=== PATIENT | male | born 1945 | race Caucasian/White ===

== ENCOUNTER 2018-01-17 14:39 | Inpatient (IN) | payer MEDICARE, OTHER ==
[2018-01-17] MEDS: NITROGLYCERIN 2% 1 GM OINT PKT TD (15:10)
[2018-01-17] MEDS: NITROGLYCERIN (SL) 0.4 MG TAB SL (15:10)
[2018-01-17] MEDS: ASPIRIN 81 MG TAB PO (15:10)
[2018-01-17 15:12] LABS: ADD MAN DIFF? NO
[2018-01-17 15:14] LABS: WHITE BLOOD COUNT 19.5 10^3/ul (4.8-10.8)
[2018-01-17 15:14] LABS: BASOPHILS % 0.2 % (0.0-2.0); EOSINOPHILS # 0.3 10^3/ul (0.0-0.5); EOSINOPHILS % 1.5 % (0.0-7.0); HEMATOCRIT 47.1 % (42.0-52.0); HEMOGLOBIN 15.9 g/dl (14.0-18.0); LYMPHOCYTES # 0.8 10^3/ul (0.8-2.9); LYMPHOCYTES % 4.3 % (15.0-51.0); MEAN CORPUSCULAR HEMOGLOBIN 32.3 pg (29.0-33.0); MEAN CORPUSCULAR HGB CONC 33.8 g/dl (32.0-37.0); MEAN CORPUSCULAR VOLUME 95.7 fl (82.0-101.0); MEAN PLATELET VOLUME 9.6 fl (7.4-10.4); MONOCYTE # 1.3 10^3/ul (0.3-0.9); MONOCYTES % 6.8 % (0.0-11.0); NEUTROPHIL # 16.9 10^3/ul (1.6-7.5); NEUTROPHILS % 86.5 % (39.0-77.0); PLATELET COUNT 309 10^3/UL (140-415); RED BLOOD COUNT 4.92 10^6/ul (4.70-6.10); RED CELL DISTRIBUTION WIDTH 12.9 % (11.5-14.5)
[2018-01-17 15:22] LABS: ANION GAP 17 (8-16); BLOOD UREA NITROGEN 18 mg/dl (7-20); CALCIUM 9.7 mg/dl (8.4-10.2); CARBON DIOXIDE 23 mmol/L (21-31); CHLORIDE 104 mmol/L (97-110); CREATININE 0.77 mg/dl (0.61-1.24); GLUCOSE 232 mg/dl (70-220); POTASSIUM 4.4 mmol/L (3.5-5.1); SODIUM 140 mmol/L (135-144)
[2018-01-17 15:34] LABS: TROPONIN-I 0.094 ng/ml (0.000-0.120)
[2018-01-17] MEDS ORDERED: ONDANSETRON 4 MG INJ IV ×2 (17:30→18:00)
[2018-01-17] MEDS ORDERED: ACETAMINOPHEN 325 MG TAB PO (17:30)
[2018-01-17] MEDS ORDERED: GLUCAGON 1 MG INJ IM (18:00)
[2018-01-17] MEDS ORDERED: GLUCOSE GEL 15 GRAM TUBE PO ×2 (18:00)
[2018-01-17] MEDS ORDERED: GLUCOSE GEL 15 GRAM TUBE BUCCAL (18:00)
[2018-01-17] MEDS ORDERED: NA PHOSPHATE/BIPHOS 133 ML ENEMA PR (18:00)
[2018-01-17] MEDS: SOD CHLORIDE 0.45% 1,000 ML IV (18:00)
[2018-01-17] MEDS ORDERED: NACL 0.9% 3 ML SYG IV (18:00)
[2018-01-17] MEDS ORDERED: LORAZEPAM 2 MG INJ IV (18:00)
[2018-01-17] MEDS ORDERED: morphine 2 MG INJ IV (18:00)
[2018-01-17] MEDS ORDERED: DEXTROSE 50% 50 ML SYRINGE IV ×2 (18:00)
[2018-01-17] MEDS ORDERED: DOCUSATE SODIUM 100 MG CAP PO (18:00)
[2018-01-17] MEDS ORDERED: HYDROCODONE/APAP (5/325) TAB PO (18:00)
[2018-01-17] MEDS ORDERED: hydrALAzine 20 MG INJ IV (18:00)
[2018-01-17] MEDS ORDERED: NITROGLYCERIN (SL) 0.4 MG TAB SL (18:00)
[2018-01-17] MEDS ORDERED: ALBUTEROL/IPRATROPIUM (NEB) 3 ML AMP HHN (18:00)
[2018-01-17] MEDS ORDERED: MAGNESIUM HYDROXIDE 30ML CUP PO (18:00)
[2018-01-17] MEDS: ALBUTEROL/IPRATROPIUM (NEB) 3 ML AMP HHN ×2 (19:46→21:00)
[2018-01-17 19:50] LABS: FREE T4 (FREE THYROXINE) 1.47 ng/dl (0.78-2.44)
[2018-01-17] MEDS: HEPARIN 5,000 UNIT/0.5 ML VIAL SC (22:04)
[2018-01-17] MEDS: INSULIN ASPART [NOVOLOG] 3 ML PEN SC (22:17)
[2018-01-17] MEDS: ATORVASTATIN 40 MG TAB PO (22:30)
[2018-01-17 22:50] LABS: CREATINE KINASE 70 IU/L (23-200)
[2018-01-17 23:02] LABS: CK INDEX 3.5
[2018-01-17 23:12] LABS: CK-MB 2.43 ng/ml (0.0-2.4); TROPONIN-I 0.224 ng/ml (0.000-0.120)
[2018-01-18] MEDS ORDERED: ACETAMINOPHEN 325 MG TAB PO (00:30)
[2018-01-18] MEDS: ACETAMINOPHEN 325 MG TAB PO (00:43)
[2018-01-18] MEDS: ALBUTEROL/IPRATROPIUM (NEB) 3 ML AMP HHN ×4 (00:50→21:53)
[2018-01-18] MEDS: INSULIN ASPART [NOVOLOG] 3 ML PEN SC ×6 (01:00→21:00)
[2018-01-18 01:36] LABS: ADD UMIC YES; UR ASCORBIC ACID NEGATIVE (NEGATIVE); UR BILIRUBIN (Dip) NEGATIVE (NEGATIVE); UR BLOOD (Dip) 1+ mg/dL (NEGATIVE); UR CLARITY CLEAR (CLEAR); UR COLOR YELLOW (YELLOW); UR GLUCOSE (Dip) 3+ mg/dL (NEGATIVE); UR KETONES (Dip) 1+ mg/dL (NEGATIVE); UR LEUKOCYTE ESTERASE (Dip) NEGATIVE Leu/ul (NEGATIVE); UR NITRITE (Dip) NEGATIVE (NEGATIVE); UR RBC 1 /HPF (0-5); UR SPECIFIC GRAVITY (Dip) 1.024 (1.003-1.030); UR TOTAL PROTEIN (Dip) NEGATIVE (NEGATIVE); UR UROBILINOGEN (Dip) NEGATIVE (NEGATIVE); UR WBC 0 /HPF (0-5)
[2018-01-18] MEDS: PANTOPRAZOLE (EC) 40 MG TAB PO (05:21)
[2018-01-18 07:34] LABS: ADD MAN DIFF? NO
[2018-01-18 07:41] LABS: BASOPHILS % 0.1 % (0.0-2.0); EOSINOPHILS # 0.3 10^3/ul (0.0-0.5); EOSINOPHILS % 2.3 % (0.0-7.0); HEMATOCRIT 41.4 % (42.0-52.0); HEMOGLOBIN 13.9 g/dl (14.0-18.0); LYMPHOCYTES # 0.8 10^3/ul (0.8-2.9); LYMPHOCYTES % 5.5 % (15.0-51.0); MEAN CORPUSCULAR HEMOGLOBIN 31.9 pg (29.0-33.0); MEAN CORPUSCULAR HGB CONC 33.6 g/dl (32.0-37.0); MEAN PLATELET VOLUME 10.1 fl (7.4-10.4); MONOCYTE # 1.2 10^3/ul (0.3-0.9); MONOCYTES % 7.9 % (0.0-11.0); NEUTROPHIL # 12.5 10^3/ul (1.6-7.5); NEUTROPHILS % 83.5 % (39.0-77.0); PLATELET COUNT 271 10^3/UL (140-415); RED BLOOD COUNT 4.36 10^6/ul (4.70-6.10); RED CELL DISTRIBUTION WIDTH 13.2 % (11.5-14.5)
[2018-01-18] MEDS: SOD CHLORIDE 0.45% 1,000 ML IV (07:47)
[2018-01-18 07:50] LABS: HEMOGLOBIN A1C 8.1 % (0-5.9)
[2018-01-18 07:54] LABS: CREATINE KINASE 61 IU/L (23-200)
[2018-01-18 08:06] LABS: CK INDEX 2.5; TROPONIN-I 0.107 ng/ml (0.000-0.120)
[2018-01-18 08:07] LABS: CK-MB 1.52 ng/ml (0.0-2.4)
[2018-01-18 08:08] LABS: ANION GAP 15 (8-16); BLOOD UREA NITROGEN 18 mg/dl (7-20); CARBON DIOXIDE 27 mmol/L (21-31); CHLORIDE 104 mmol/L (97-110); CREATININE 0.82 mg/dl (0.61-1.24); GLUCOSE 94 mg/dl (70-220); MAGNESIUM 1.8 mg/dl (1.7-2.5); PHOSPHORUS 3.6 mg/dl (2.5-4.9); POTASSIUM 4.1 mmol/L (3.5-5.1); SODIUM 142 mmol/L (135-144)
[2018-01-18 08:30] LABS: CHOL/HDL RATIO 3.4 RATIO; HDL CHOLESTEROL 27 mg/dl (31-75); LDL CHOLESTEROL,CALCULATED 46 mg/dl; TRIGLYCERIDES 104 mg/dl (0-149)
[2018-01-18 08:30] LABS: CHOLESTEROL 94 mg/dl (100-200)
[2018-01-18] MEDS: ASPIRIN (EC) 325 MG TAB PO (08:53)
[2018-01-18] MEDS: LOSARTAN 50 MG TAB PO (08:54)
[2018-01-18] MEDS: HEPARIN 5,000 UNIT/0.5 ML VIAL SC ×2 (08:54→22:27)
[2018-01-18] MEDS ORDERED: ASPIRIN (EC) 325 MG TAB PO (09:00)
[2018-01-18] MEDS: FUROSEMIDE 40 MG INJ IV (15:19)
[2018-01-18] MEDS: ATORVASTATIN 40 MG TAB PO (22:20)
[2018-01-19] MEDS: ACETAMINOPHEN 325 MG TAB PO (00:21)
[2018-01-19] MEDS: ALBUTEROL/IPRATROPIUM (NEB) 3 ML AMP HHN ×6 (01:41→21:29)
[2018-01-19] MEDS: ACCUCHECK AT 2AM (Patients on SS coverage) XX (02:00)
[2018-01-19] MEDS: PANTOPRAZOLE (EC) 40 MG TAB PO (05:44)
[2018-01-19] MEDS: LEVOFLOXACIN 500 MG TAB PO (05:44)
[2018-01-19] MEDS ORDERED: INSULIN ASPART [NOVOLOG] 3 ML PEN SC (07:30)
[2018-01-19 08:49] LABS: ADD MAN DIFF? NO
[2018-01-19] MEDS: Insulin NOVOLOG SS MILD Algorithm (SS with meals and bedtime) SC ×4 (08:54→21:44)
[2018-01-19 08:55] LABS: WHITE BLOOD COUNT 12.7 10^3/ul (4.8-10.8)
[2018-01-19 08:55] LABS: BASOPHILS % 0.2 % (0.0-2.0); EOSINOPHILS # 0.4 10^3/ul (0.0-0.5); EOSINOPHILS % 3.2 % (0.0-7.0); HEMATOCRIT 40.4 % (42.0-52.0); HEMOGLOBIN 13.6 g/dl (14.0-18.0); LYMPHOCYTES # 0.8 10^3/ul (0.8-2.9); LYMPHOCYTES % 6.4 % (15.0-51.0); MEAN CORPUSCULAR HEMOGLOBIN 32.1 pg (29.0-33.0); MEAN CORPUSCULAR HGB CONC 33.7 g/dl (32.0-37.0); MEAN CORPUSCULAR VOLUME 95.3 fl (82.0-101.0); MEAN PLATELET VOLUME 9.6 fl (7.4-10.4); MONOCYTE # 1.1 10^3/ul (0.3-0.9); MONOCYTES % 8.6 % (0.0-11.0); NEUTROPHIL # 10.4 10^3/ul (1.6-7.5); NEUTROPHILS % 81.2 % (39.0-77.0); PLATELET COUNT 257 10^3/UL (140-415); RED BLOOD COUNT 4.24 10^6/ul (4.70-6.10); RED CELL DISTRIBUTION WIDTH 12.9 % (11.5-14.5)
[2018-01-19] MEDS: LOSARTAN 50 MG TAB PO (08:58)
[2018-01-19] MEDS: ASPIRIN (EC) 81 MG TAB PO (09:01)
[2018-01-19] MEDS: HEPARIN 5,000 UNIT/0.5 ML VIAL SC ×2 (09:02→21:43)
[2018-01-19 09:14] LABS: ANION GAP 15 (8-16); BLOOD UREA NITROGEN 18 mg/dl (7-20); CALCIUM 8.5 mg/dl (8.4-10.2); CARBON DIOXIDE 27 mmol/L (21-31); CHLORIDE 105 mmol/L (97-110); CREATININE 0.79 mg/dl (0.61-1.24); GLUCOSE 129 mg/dl (70-220); POTASSIUM 3.8 mmol/L (3.5-5.1); SODIUM 143 mmol/L (135-144)
[2018-01-19 09:21] LABS: B-TYPE NATRIURETIC PEPTIDE 405 PG/ML (0-125)
[2018-01-19] MEDS: METOPROLOL (XL) 25 MG TAB PO (13:45)
[2018-01-19] MEDS: POTASSIUM CHLORIDE (SR) 10 MEQ TAB PO (13:45)
[2018-01-19] MEDS: ATORVASTATIN 40 MG TAB PO (21:35)
[2018-01-20] MEDS: ALBUTEROL/IPRATROPIUM (NEB) 3 ML AMP HHN ×6 (00:49→21:18)
[2018-01-20] MEDS: ACCUCHECK AT 2AM (Patients on SS coverage) XX (02:00)
[2018-01-20] MEDS: PANTOPRAZOLE (EC) 40 MG TAB PO (05:45)
[2018-01-20] MEDS: LEVOFLOXACIN 500 MG TAB PO (05:45)
[2018-01-20 06:14] LABS: ADD MAN DIFF? NO
[2018-01-20 06:17] LABS: WHITE BLOOD COUNT 10.6 10^3/ul (4.8-10.8)
[2018-01-20 06:17] LABS: BASOPHILS % 0.3 % (0.0-2.0); EOSINOPHILS # 0.5 10^3/ul (0.0-0.5); HEMATOCRIT 38.6 % (42.0-52.0); HEMOGLOBIN 13.1 g/dl (14.0-18.0); LYMPHOCYTES # 1.4 10^3/ul (0.8-2.9); LYMPHOCYTES % 13.3 % (15.0-51.0); MEAN CORPUSCULAR HEMOGLOBIN 32.2 pg (29.0-33.0); MEAN CORPUSCULAR HGB CONC 33.9 g/dl (32.0-37.0); MEAN CORPUSCULAR VOLUME 94.8 fl (82.0-101.0); MONOCYTES % 9.6 % (0.0-11.0); NEUTROPHIL # 7.6 10^3/ul (1.6-7.5); NEUTROPHILS % 71.4 % (39.0-77.0); PLATELET COUNT 269 10^3/UL (140-415); RED BLOOD COUNT 4.07 10^6/ul (4.70-6.10); RED CELL DISTRIBUTION WIDTH 12.8 % (11.5-14.5)
[2018-01-20 06:52] LABS: ANION GAP 10 (8-16); BLOOD UREA NITROGEN 17 mg/dl (7-20); CALCIUM 8.7 mg/dl (8.4-10.2); CARBON DIOXIDE 28 mmol/L (21-31); CHLORIDE 103 mmol/L (97-110); CREATININE 0.88 mg/dl (0.61-1.24); GLUCOSE 164 mg/dl (70-220); POTASSIUM 4.3 mmol/L (3.5-5.1); SODIUM 137 mmol/L (135-144)
[2018-01-20] MEDS: FUROSEMIDE 40 MG TAB PO (08:08)
[2018-01-20] MEDS: METOPROLOL (XL) 25 MG TAB PO (08:09)
[2018-01-20] MEDS: LOSARTAN 25 MG TAB PO (08:09)
[2018-01-20] MEDS: ASPIRIN (EC) 81 MG TAB PO (08:09)
[2018-01-20] MEDS: HEPARIN 5,000 UNIT/0.5 ML VIAL SC ×2 (08:18→20:36)
[2018-01-20] MEDS: Insulin NOVOLOG SS MILD Algorithm (SS with meals and bedtime) SC ×4 (08:19→20:37)
[2018-01-20] MEDS: AZITHROMYCIN 250 MG TAB PO (12:56)
[2018-01-20 14:20] LABS: AADO2 Arterial 51.6 mmHg (7.0-24.0); Allen Test ACCEPTAB; Arterial Base Excess 1.8 mmol/L (-3.0-3); Arterial Blood Gas Oxygen Sat 90.4 mmHG (95.0-98.0); Arterial COHb 0.7 % (0.0-3.0); Arterial Fraction of Oxyhgb 89.6 % (93.0-99.0); Arterial MetHb 0.2 % (0.0-1.5); Arterial Total Hemglobin 15.4 g/dl (12.0-18.0); Arterial pCO2 35.2 mmhg (35-45); MODE ROOM AIR; Site Right Radial
[2018-01-20] MEDS ORDERED: morphine LIQ (10 MG/5 ML) CUP PO (16:00)
[2018-01-20] MEDS: GUAIFENESIN/DM 5ML CUP PO ×2 (16:56→21:13)
[2018-01-20] MEDS: ATORVASTATIN 40 MG TAB PO (20:35)
[2018-01-21] MEDS: ALBUTEROL/IPRATROPIUM (NEB) 3 ML AMP HHN ×3 (01:02→08:16)
[2018-01-21] MEDS: ACCUCHECK AT 2AM (Patients on SS coverage) XX (01:52)
[2018-01-21] MEDS: PANTOPRAZOLE (EC) 40 MG TAB PO (05:32)
[2018-01-21] MEDS: LEVOFLOXACIN 500 MG TAB PO (05:32)
[2018-01-21] MEDS: FUROSEMIDE 40 MG TAB PO (08:22)
[2018-01-21] MEDS: METOPROLOL (XL) 25 MG TAB PO (08:23)
[2018-01-21] MEDS: ASPIRIN (EC) 81 MG TAB PO (08:23)
[2018-01-21] MEDS: LOSARTAN 25 MG TAB PO (08:23)
[2018-01-21] MEDS: HEPARIN 5,000 UNIT/0.5 ML VIAL SC (08:24)
[2018-01-21] MEDS: Insulin NOVOLOG SS MILD Algorithm (SS with meals and bedtime) SC ×2 (08:24→12:07)
[2018-01-21] MEDS: GUAIFENESIN/DM 5ML CUP PO (08:53)
[2018-01-21] MEDS: VALACYCLOVIR 500 MG TAB PO (12:01)
[2018-01-21] MEDS: FLUTICASONE/VILANTEROL 100-25 INH (12:01)
== END 2018-01-21 13:38 | disposition home or self-care (01) | DRG 291 ==
LOC: E/R 14:39 → MS4 17:11
DX: I11.0 Hypertensive heart disease with heart failure (principal); J18.9 Pneumonia, unspecified organism; I25.810 Atherosclerosis of coronary artery bypass graft(s) without angina pectoris; I50.33 Acute on chronic diastolic (congestive) heart failure; J20.9 Acute bronchitis, unspecified; R07.89 Other chest pain; D72.829 Elevated white blood cell count, unspecified; E78.5 Hyperlipidemia, unspecified; E11.9 Type 2 diabetes mellitus without complications; F17.290 Nicotine dependence, other tobacco product, uncomplicated; I25.2 Old myocardial infarction; Z95.5 Presence of coronary angioplasty implant and graft; Z79.84 Long term (current) use of oral hypoglycemic drugs; Z79.82 Long term (current) use of aspirin
CPT/HCPCS: 36415; 36600; 71045; 80048; 80061; 81001; 82550; 82553; 82803; 82962; 83036; 83735; 83880; 84100; 84439; 84443; 84484; 85025; 87086; 93005; 93306; 94640; 94664; 96372; 97116; 97162; 97530; 99285-25; G0378